=== PATIENT | female | born 1965 | race Caucasian/White ===

== ENCOUNTER 2017-01-01 06:15 | Day surgery (SDC) | payer OTHER ==
[2017-01-01] VITALS (9 sets, daily range): BP systolic 98–135; BP diastolic 71–84; PULSE 82–97; RESP 14–17; O2SAT 93–99
[~2017-01-01] VITALS: Ht 167.6 cm; Wt 89.7 kg
[~2017-01-01 06:15] MED LIST: ALPR0.5T8 PO; CHOL10008 PO; CeFAZolin Inj 2 GM in IV Premix 1 EACH IV ONE; HYDR-3825 PO; HYDR25TA4 PO; LISI10TA PO; Lactated Ringer's 1,000 ML IV SCH; MULT-1018 PO; SERT50TA9 PO; TRAM50TA2 PO
[2017-01-01] MEDS ORDERED: fentaNYL-PF 50 mCg/mL 2 mL Inj ONE (06:16)
[2017-01-01] MEDS ORDERED: Lactated Ringer's 1,000 ML IV ONE (06:31)
--- NOTE | 2017-01-01 07:37 | PCM.HPANE ---
Patient Data Surgeon Admitting Provider: Attending Provider:Moy Ayala MD Primary Care Physician:Sajan Mckeon MD Other Provider:Moy Bay Anesthesia Reason for Visit Right Knee Medial & Lateral Meniscus Tears Ht/WT & BMI Height (Feet): 5 Height (Inches): 6 Weight (Kilograms): 89.72 Body Mass Index 31.00 Allergies Coded Allergies: No Known Allergies (Verified Allergy, Unknown, 09/18/16) Past Anesthesia History Anesthesia History: Denies:: Abnormal Airway, Anesthesia Reactions, Difficult Intubation, Fam Anesthesia Reaction, Fam Malignant Hypertherm, Malignant Hyperthermia Diabetes History Hx Diabetes?: No MRSA MRSA: No Medications Hypertension Medication: Yes Home Meds Incl Beta Sudhakar: No Reported Medications Cholecalciferol (Vitamin D3) (Vitamin D3)1,000 Unit Tab.chew1,000 Unit PO DAILY 12/27/16 Sertraline HCl (Sertraline)50 Mg Umewhk23 Mg PO DAILY 30 Days Ref 0 12/27/16 Multivitamin (Multi Vitamin Daily)1 Each Tablet1 Each PO DAILY 30 Days Ref 0 12/27/16 Lisinopril 10 Mg Jzdtox10 Mg PO DAILY 30 Days Ref 0 12/27/16 Hydrocodone-Acetaminophen 7.5-325 mg 1 Each Tablet0.5-1 Tablet PO Q6H PRN For Pain Ref 0 12/27/16 Hydrochlorothiazide 25 Mg Pcwunv41 Mg PO DAILY 30 Days Ref 0 12/27/16 Alprazolam 0.5 Mg Tablet0.5 Mg PO TID PRN For Anxiety Ref 0 12/27/16 Discontinued Reported Medications Tramadol 50 Mg Cstbsc58 Mg PO Q6H PRN For Pain Ref 0 12/27/16 Cholecalciferol (Vitamin D3) (Vitamin D3)1,000 Unit Tab.chew1,000 Unit PO DAILY 02/05/16 Sertraline HCl (Sertraline)50 Mg Uutkns61 Mg PO DAILY 30 Days Ref 0 02/05/16 Omeprazole 20 Mg Capsule.dr20 Mg PO DAILY Ref 0 02/05/16 Multivitamin (Multi Vitamin Daily)1 Each Tablet1 Each PO DAILY 30 Days Ref 0 02/05/16 Hydrocodone-Acetaminophen 7.5-325 mg 1 Each Tablet1 Tablet PO Q4H PRN For Pain Ref 0 02/05/16 Alprazolam 0.5 Mg Tablet0.5 Mg PO TID PRN For Anxiety Ref 0 02/05/16 Hydrochlorothiazide 25 Mg Jdvwbj29 Mg PO DAILY 30 Days Ref 0 01/06/16 Lisinopril 10 Mg Okoboh35 Mg PO DAILY 30 Days Ref 0 01/06/16 Discontinued Scripts Ketorolac Tromethamine 10 Mg Khojui70 Mg PO QID 5 Days Ref 0 Prov:Martina Mora 05/11/16 History HEENT History: Denies:: Abnormal Airway Cataracts Difficult Intubation Dysphagia Glaucoma Hearing Problem Sinus Problem TMJ Hx of Heart Problems?: Yes Cardiovascular History: Positive for:: Hypertension Denies:: AICD Abdominal Aortic Aneurism Atrial Fibrillation Chest Pain Pacemaker Valvular Heart Disease Hx of Respiratory Problem?: No Respiratory History: Denies:: Asthma COPD Cough Hemoptysis Oxygen Administration Pneumonia Tuberculosis Use of C-PAP Machine Hx Neurologic Problems?: No Neurological History: Denies:: CVA Dementia Headaches Multiple Sclerosis Parkinson's Disease Seizures Hx of GI Problems?: Yes Gastrointestinal History: Denies:: Cirrhosis Diverticulitis Gall Bladder Disease Gastroesphageal Reflux Gastrointestinal Bleeding Heartburn Hepatitis Hiatal Hernia Rectal Bleeding Hx of Problems?: No Genitourinary History: Denies:: Kidney Stones Urinary Tract Infection Female Hx: Denies:: Currently (TUBAL ) Problems with Breasts? Skin History: Denies:: History Skin Disorders? Pressure Ulcers Hx Musculoskeletal Problems?: Yes Musculoskeletal History: Positive for:: Musculoskeletal Trauma (right knee current problem) Osteoarthritis Denies:: Back Injury Degenerative Joint Joint Replacement Systemic Lupus Hx of Psycho/Social Problems?: Yes Psycho Social History: Positive for:: Hx Depression Denies:: Anxiety Hx Surgeries?: Yes (shoulder, tubal ligation, right knee scope) Hx Any Other Health Problems?: Yes Other History: Denies:: Cancer Thyroid Disease History Blood Transfusions: Positive for:: Accept Blood Products? Denies:: Blood Transfusions Hx Diabetes: No Hx Alcohol Use: NoHx Substance Use: No Smoking Status: Never Smoker Have You Smoked inLast 12 mo: No Stop/Bang S-Snoring: Do You Snore Loudly: No T-Tired: feel tired, fatigued: No O-Obsered: Observed not breath: No P-Blood Pressure: treated: Yes B- Body Mass Index > 35 kg/m2: No A- Age over 50: Yes N- Neck Large Circumference: No G- Gender Male: No CHIRAG Total Score: 2 Risk Assessment Category Category 1A: Patient has history of documented sleep apnea, and HAS NOT received any narcotic, sedative or anesthesia administration during this stay. Category 1B: Patient has history of documented sleep apnea, and HAS received any narcotic , sedative or anesthesia administration during this stay Category 2: Patient has SUSPECTED Obstructive Sleep Apnea, and HAS received any narcotic , sedative or anesthesia administration during this stay. Category 3: Patient has SUSPECTED Obstructive Sleep Apnea and HAS NOT received narcotic, sedative or anesthesia administration during this stay. Category 4: Outpatient in Procedural Areas with known sleep apnea or who screen positive for High Risk via the STOP/BANG questionnaire. Exam Exam Vital Signs Vital Signs Date Time Temp Pulse Resp B/P Pulse Ox O2 Delivery O2 Flow Rate FiO2 01/01/17 06:32 36.7 82 14 106/73 93 Room Air General Appearance: Alert, Oriented X3, Cooperative HEENT/AIRWAY: MP 2, Neck Movement (from, thick), Mouth Opening (wnl) Lungs: Clear to Auscultation Heart: Exam Unremarkable Meds/Labs/Diagnostics Admission Meds Current Medications Lactated Ringer's (Lr) 1,000 ml @ ud STK-MED ONCE IV Last administered on t 06:31; Start 01/01/17 at 06:31; Stop 01/01/17 at 06:32; Status DC Plan Impression Patient chart reviewed, patient interviewed and anesthestic plan with risks, benefits, and alternatives discussed, and informed consent obtained. NPO Status: 04/30@2029 ASA Physical Status: ASA2 Mod Systemic Disease Anesthetic Plan: GA Bene/Risks/Altern/Consents: Yes HP Complete Prior to Induction: Yes Other patient had LMA for Knee scope 8 months ago and had 3 week sore throat post op. Requests that this not happen again. Lew Lee MD Jan 01, 2017 07:37
[2017-01-01] MEDS ORDERED: Acetaminophen IV 1,000 MG in IV Premix 1 EACH IV ONE (07:40)
[2017-01-01] MEDS ORDERED: Lactated Ringer's 1,000 ML IV SCH (08:43)
[2017-01-01] MEDS ORDERED: Lactated Ringer's 500 ML IV PRN (08:43)
[2017-01-01] MEDS ORDERED: hydrALAZINE 20 mg/mL Inj IVPUSH PRN (08:45)
[2017-01-01] MEDS ORDERED: Atropine 0.4 mg/mL Inj IVPUSH PRN (08:45)
[2017-01-01] MEDS ORDERED: hydrOXYzine Inj 25 MG/1 mL SDV IM PRN (08:45)
[2017-01-01] MEDS ORDERED: EPHEDrine Sulfate 50 mg/mL Inj IVPUSH PRN (08:45)
[2017-01-01] MEDS ORDERED: Phenylephrine 10,000 mCg/mL Inj IVPUSH PRN (08:45)
[2017-01-01] MEDS ORDERED: Dexamethasone 4 mg/mL Inj IVPUSH PRN (08:45)
[2017-01-01] MEDS ORDERED: HYDROmorphone 1 mg/mL Inj IVPUSH PRN (08:45)
[2017-01-01] MEDS ORDERED: Labetalol 5 mg/mL 4 mL Inj IV PRN (08:45)
[2017-01-01] MEDS ORDERED: Ondansetron 2 mg/mL 2 mL Inj IVPUSH PRN (08:45)
[2017-01-01] MEDS ORDERED: MethylprednisoLONE Depot 40 mg/mL Inj ARTICULAR ONE (08:56)
[2017-01-01] MEDS ORDERED: Lidocaine 2%-Epi 1:100,000 20 mL Inj INFILTRATE ONE (08:56)
[2017-01-01] MEDS ORDERED: HYDROcodone-APAP 5-325 mg Tablet PO PRN (09:50)
--- NOTE | 2017-01-01 09:51 | PCM.ANEP1 ---
Post Anesthesia Phase 1 PACU Phase 1 Assessment Vital Signs Vital Signs Date Time Temp Pulse Resp B/P Pulse Ox O2 Delivery O2 Flow Rate FiO2 01/01/17 09:50 91 15 116/83 96 01/01/17 09:45 94 15 98/72 97 Room Air 01/01/17 09:40 37.1 92 15 118/73 97 Room Air 01/01/17 06:32 36.7 82 14 106/73 93 Room Air Anesthetic Administered: GA Level of Alertness: Awake, talking WHITTAKER's with Equal Strength: Yes Pain: No Nausea or Vomiting: No Oxygen Delivery: Room Air Lungs: Normal Air Movement Summary Denies Sore Throat Lew Lee MD Jan 01, 2017 09:51
--- NOTE | 2017-01-01 09:53 | PCM.ORTHOB ---
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 Grade 2-3 chondromalacia on both sides of the joint with areas in the weightbearing surface of the medial femoral condyle loss of cartilage down to near bone. The Anterior cruciate ligament was intact and stable to probing. Radial tearing of the free edge of the lateral meniscal body extending into the anterior horn. Areas on the lateral periphery of the weightbearing surface lateral femoral condyle with loss of cartilage down to bone with surrounding grade 3 chondromalacia. The majority of the tibial and lateral femoral condylar weightbearing surface had grade 1-2 chondromalacia. No loose bodies were noted in the medial or lateral gutters. The patellar undersurface was remarkable for diffuse grade 2-3 chondromalacia. Grafts, Implants: None Complications There were no periprocedural complications identified. Condition Stable Anesthetic Administered: GA Drains: None Catheters: None Output, Estimated Blood Loss: 2 Blood Admin during surgery: No Surgical Cast or Splint: None Additional Information Tourniquet time 36 minutes Surgical Specimen Removed: No Surgical Specimen sent to Path: No Post Operative Plan Patient will be discharged from daycare surgery when protocol is met. The patient may weight-bear as tolerated through her right lower extremity beginning postop day #1. Patient will resume her preoperative knee strengthening exercises immediately. Patient will be seen for routine check on her after postop day #5. The patient will be able to have her skin sutures removed on or after postoperative day #12. The patient should be able to resume light activities of daily living by that point. Moy Ayala MD Jan 01, 2017 09:53
--- NOTE | 2017-01-01 10:00 | PCM.ORTHOP ---
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 Unfortunately the patient redeveloped right knee painful symptomatology after performing some strenuous yard cleanup activities and continues to have sharp catching pain on the inside and outside of her right knee with loaded squatting, lunging, flexing, turning and twisting activities. Preoperative exam of right knee reveals full and stable knee range of motion with tenderness to palpation of the joint line and positive Juan R signs. Preoperative MRI of the patient's right knee is suspicious for re-tear of the medial meniscal remnant and possible tears of the lateral menisci. Progressive medial patellofemoral compartment articular loss is also noted. The patient has not gotten relief from her more recent knee symptoms through activity modification, use of anti-inflammatory agents and an appropriate attempt at knee rehabilitation. The patient presents for right knee arthroscopic partial medial lateral meniscectomies. Findings Right knee medial compartment degenerative tear of medial meniscus at the junction of the body and posterior horn with partial extrusion of torn fragment medially. Grade 2-3 chondromalacia on both sides of the joint with areas in the weightbearing surface of the medial femoral condyle loss of cartilage down to near bone. The Anterior cruciate ligament was intact and stable to probing. Radial tearing of the free edge of the lateral meniscal body extending into the anterior horn. Areas on the lateral periphery of the weightbearing surface lateral femoral condyle with loss of cartilage down to bone with surrounding grade 3 chondromalacia. The majority of the tibial and lateral femoral condylar weightbearing surface had grade 1-2 chondromalacia. No loose bodies were noted in the medial or lateral gutters. The patellar undersurface was remarkable for diffuse grade 2-3 chondromalacia. Details of Procedure The patient was brought to the OR and given a general anesthetic. She is placed in a supine position and tourniquet was placed high about the right thigh. Her extremities prepped and draped in usual sterile fashion. Tourniquet was inflated to 275 mmHg. We reutilized the 2 infrapatellar arthroscopic portal scars, one medial and one lateral. We inserted the arthroscope and instilled lactated Ringer's with epinephrine as we went directly to the medial compartment. We confirmed the presence of a partially incarcerated and extruded degenerative tear of the medial meniscus at the junction of the body and posterior horn. There was minor fraying of the meniscal root as well. We confirmed further loss of cartilage on both sides of the joint down to near bone or bone on medial femoral condylar weightbearing surface. We used the arthroscopic basket biting forceps and arthroscopic shaver to debride the meniscal tear back to a stable base. We used the arthroscopic shaver to perform a limited chondroplasty of the more loose cartilaginous fragments in the medial femoral condyle. We explored the rest of the knee. We found the anterior cruciate ligament to be intact and stable to probing. Lateral compartment was better preserved with peripheral loss of cartilage in the weightbearing surface of the lateral femoral condyle down to bone or near bone. The lateral meniscal body appeared to have degenerative tears extending into the anterior horn. We used the arthroscopic shaver to debride the lateral meniscal tears back to a stable base. Obesity arthroscopic shaver to debride the loose cartilaginous fragments lateral femoral condyle. The medial and lateral gutters were free of loose bodies. We explored the patellofemoral compartment and found diffuse grade 2-3 chondromalacia affecting the majority of the patellar undersurface. We used the arthroscopic shaver to perform a limited chondroplasty of the more loose cartilaginous fragments. The knee was then thoroughly irrigated and the arthroscope and instruments removed. 40 mg of Depo-Medrol and 30 mL of 2% lidocaine with epinephrine was instilled into the knee. The arthroscopic portal sites were closed with interrupted 4-0 nylon sutures. The wounds were dressed with Xeroform and dry gauze dressings. The tourniquet was deflated and the patient was taken back to PACU in stable and satisfactory condition. There were no complications. The patient tolerated the procedure well. Grafts, Implants: None Complications There were no periprocedural complications identified. Condition Stable Anesthetic Administered: GA Drains: None Catheters: None Output, Estimated Blood Loss: 2 Blood Admin during surgery: No Surgical Cast or Splint: None Addtional Information Tourniquet time 36 minutes Surgical Specimen Removed: No Specimen sent to Pathology: No Post Operative Plan Patient will be discharged from daycare surgery when protocol is met. The patient may weight-bear as tolerated through her right lower extremity beginning postop day #1. Patient will resume her preoperative knee strengthening exercises immediately. Patient will be seen for routine check on her after postop day #5. The patient will be able to have her skin sutures removed on or after postoperative day #12. The patient should be able to resume light activities of daily living by that point. copies to: Sajan Mckeon MD; Moy Ayala MD, Michael G.E MD Jan 01, 2017 10:00
[2017-01-01] MEDS: fentaNYL-PF 50 mCg/mL 2 mL Inj IVPUSH PRN ×2 (10:05→10:10)
--- NOTE | 2017-01-01 11:21 | PCM.ANEP2 ---
Post Anesthesia Evaluation ASA/CMS Post Anesthesia VS in Patient's Normal Range?: Yes Resp Stable; Airway Patent?: Yes CV Function & Hydration Stable: Yes Mental Status Recovered?: Yes Pain control Satisfactory?: Yes N/V Control Satisfactory?: Yes Lew Lee MD Jan 01, 2017 11:21
[2017-04-23] MEDS ORDERED: PANT40TA3 PO (10:23)
== END 2017-01-01 23:59 | disposition home or self-care (01) ==
LOC: SAS 06:15
PROVIDERS: ATTEND Orthopaedic Surgery
DX: M23.341 Other meniscus derangements, anterior horn of lateral meniscus, right knee (principal); M23.321 Other meniscus derangements, posterior horn of medial meniscus, right knee; M94.261 Chondromalacia, right knee; I10 Essential (primary) hypertension
CPT/HCPCS: 29880; J0690; J1030; J1170; J2175; J2250; J3010; J7120

== ENCOUNTER 2017-04-24 07:08 | Day surgery (SDC) | payer OTHER ==
[~2017-04-24] VITALS: Ht 167.6 cm; Wt 86.2 kg
[~2017-04-24 07:08] MED LIST changes: -CeFAZolin Inj 2 GM in IV Premix 1 EACH IV ONE; +Lactated Ringer's 1,000 ML IV ONE; -Lactated Ringer's 1,000 ML IV SCH; +PANT40TA3 PO; -TRAM50TA2 PO
[2017-04-24] MEDS ORDERED: Propofol 10,000 mCg/mL 20 mL Inj ONE (07:09)
[2017-04-24 07:36] VITALS: BP 134/91; RESP 14; O2SAT 97
[2017-04-24] MEDS ORDERED: Lactated Ringer's 1,000 ML IV SCH (07:48)
--- NOTE | 2017-04-24 07:48 | PCM.HPANE ---
Patient Data Surgeon Admitting Provider: Attending Provider:Praneeth Mcqueen MD Primary Care Physician:Sajan Mckeon MD Other Provider:Edyta Bayingham Anesthesia Reason for Visit GERD Ht/WT & BMI Height (Feet): 5 Height (Inches): 6 Weight (Kilograms): 86.18 Body Mass Index 30.00 Allergies Coded Allergies: No Known Allergies (Verified Allergy, Unknown, 04/23/17) Past Anesthesia History Anesthesia History: Denies:: Abnormal Airway, Anesthesia Reactions, Difficult Intubation, Fam Anesthesia Reaction, Fam Malignant Hypertherm, Malignant Hyperthermia Diabetes History Hx Diabetes?: No MRSA MRSA: No Medications Hypertension Medication: Yes Home Meds Incl Beta Sudhakar: No Reported Medications Pantoprazole DR 40 Mg Tablet.dr40 Mg PO DAILY Ref 0 04/23/17 Cholecalciferol (Vitamin D3) (Vitamin D3)1,000 Unit Tab.chew1,000 Unit PO DAILY 12/27/16 Sertraline HCl (Sertraline)50 Mg Atsgof86 Mg PO DAILY 30 Days Ref 0 12/27/16 Multivitamin (Multi Vitamin Daily)1 Each Tablet1 Each PO DAILY 30 Days Ref 0 12/27/16 Lisinopril 10 Mg Avhdos99 Mg PO DAILY 30 Days Ref 0 12/27/16 Hydrocodone-Acetaminophen 7.5-325 mg 1 Each Tablet0.5-1 Tablet PO Q6H PRN For Pain Ref 0 12/27/16 Hydrochlorothiazide 25 Mg Atopfe26 Mg PO DAILY 30 Days Ref 0 12/27/16 Alprazolam 0.5 Mg Tablet0.5 Mg PO TID PRN For Anxiety Ref 0 12/27/16 History History of ENT Problems?: No HEENT History: Denies:: Abnormal Airway Cataracts Difficult Intubation Dysphagia Hearing Problem Sinus Problem TMJ Denture Type: None Teeth Condition: Within Normal Limits Hx of Heart Problems?: Yes Cardiovascular History: Positive for:: Hypertension (lisinopril) Denies:: AICD Abdominal Aortic Aneurism Atrial Fibrillation Chest Pain Pacemaker Valvular Heart Disease Hx of Respiratory Problem?: No Respiratory History: Denies:: Asthma COPD Cough Hemoptysis Oxygen Administration Pneumonia Tuberculosis Use of C-PAP Machine Hx Neurologic Problems?: No Neurological History: Denies:: CVA Dementia Headaches Multiple Sclerosis Parkinson's Disease Seizures Hx of GI Problems?: Yes Hx of Problems?: No Genitourinary History: Denies:: Kidney Stones Urinary Tract Infection Female Hx: Denies:: Currently (TUBAL ) Problems with Breasts? Skin History: Denies:: History Skin Disorders? Pressure Ulcers Hx Musculoskeletal Problems?: Yes Musculoskeletal History: Positive for:: Musculoskeletal Trauma (right knee current problem) Denies:: Back Injury Degenerative Joint Joint Replacement Systemic Lupus Hx of Psycho/Social Problems?: Yes Psycho Social History: Positive for:: Hx Depression Denies:: Anxiety Hx Surgeries?: Yes (shoulder, tubal ligation, right knee scope) Hx Any Other Health Problems?: Yes Other History: Denies:: Cancer Thyroid Disease History Blood Transfusions: Denies:: Blood Transfusions Hx Diabetes: No Hx Alcohol Use: NoHx Substance Use: No Smoking Status: Never Smoker Have You Smoked inLast 12 mo: No Stop/Bang Treated for Sleep Apnea?: No Do You Have a CPAP Machine?: No S-Snoring: Do You Snore Loudly: No T-Tired: feel tired, fatigued: No P-Blood Pressure: treated: Yes B- Body Mass Index > 35 kg/m2: Yes A- Age over 50: Yes N- Neck Large Circumference: No G- Gender Male: No CHIRAG Risk Assessment: Low Risk, <3 Yes Risk Assessment Category Category 1A: Patient has history of documented sleep apnea, and HAS NOT received any narcotic, sedative or anesthesia administration during this stay. Category 1B: Patient has history of documented sleep apnea, and HAS received any narcotic , sedative or anesthesia administration during this stay Category 2: Patient has SUSPECTED Obstructive Sleep Apnea, and HAS received any narcotic , sedative or anesthesia administration during this stay. Category 3: Patient has SUSPECTED Obstructive Sleep Apnea and HAS NOT received narcotic, sedative or anesthesia administration during this stay. Category 4: Outpatient in Procedural Areas with known sleep apnea or who screen positive for High Risk via the STOP/BANG questionnaire. Exam Exam Vital Signs Vital Signs Date Time Temp Pulse Resp B/P Pulse Ox O2 Delivery O2 Flow Rate FiO2 04/24/17 07:36 36.5 14 134/91 97 Room Air General Appearance: Oriented X3 HEENT/AIRWAY: MP 2 Lungs: Normal Air Movement Heart: Regular Rate/Rhythm Plan Impression Patient chart reviewed, patient interviewed and anesthestic plan with risks, benefits, and alternatives discussed, and informed consent obtained. ASA Physical Status: ASA2 Mod Systemic Disease Anesthetic Plan: MAC Bene/Risks/Altern/Consents: Yes HP Complete Prior to Induction: Yes Omer Villarreal MD Apr 24, 2017 07:48
[2017-04-24] MEDS ORDERED: Ondansetron 2 mg/mL 2 mL Inj IVPUSH PRN (07:50)
[2017-04-24] MEDS ORDERED: MetoCLOpramide 5 mg/mL 2 mL Inj IVPUSH PRN (07:50)
[2017-04-24 08:14] VITALS: BP 139/91; PULSE 76; RESP 16; O2SAT 97
--- NOTE | 2017-04-24 08:17 | PCM.ENDEGD ---
EGD Date of Service: Apr 24, 2017 Physician Praneeth Mcqueen MD Pre Procedure Diagnosis: Reflux Post Procedure Dx & Findings: Esophagitis hiatal hernia esophageal ulcer and possible Jackson's Procedure Esophagogastroduodenoscopy PROCEDURE IN DETAIL: After proper sedation, Olympus video endoscope was inserted into patient's mouth and esophagus was successfully intubated. Scope introduced esophagus. Esophagus showed normal shiny whitish mucosa consistent with squamous cell component. Z line was not intact at 36 cm from the incisors. Patient had a 4 cm hiatal hernia as well. At 36 cm, there were evidence of healing ulcer 2. These are biopsied. Also some scar tissue is noted. This was also biopsied. Narrow banding used and there was a possible short segment Jackson's ie less than 2 cm of salmon color mucosa breaking through the Z line. Four-quadrant biopsies obtained. However the lumen was wide open. All the biopsies are placed in 1 bottle. Scope further advanced to the stomach. Stomach showed normal shiny mucosa with normal appearing rugae folds without any ulcer mass erosion. Cardia fundus body antrum pylorus were all visualized. Retroflexion was done. Stomach was easily inflated and deflatable using air. Scope further events to the distal duodenum. Duodenum revealed normal villous structures with normal appearing folds without any mass ulcer erosion. Impression Esophagitis hiatal hernia esophageal ulcer possible Jackson's Recommendation Continue pantoprazole as prescribed Follow-up with Kassy Robledo in the GI clinic Presedation Assessment Risks and Benefits Informed consent was obtained from the patient after all risks and benefits including but not limited to drug reaction, infection, pain, bleeding, perforation, as well as alternatives were discussed. Patient monitoring Continuous pulse oximetry, cardiac monitoring, blood pressure monitoring, IV access, and oxygen at 2L per nasal cannula. Complications There were no periprocedural complications identified. Post Procedure Plan Post Procedure Recommendations 1. Restrict activities today. 2. Resume normal activities in the morning. 3. Resume medications. 4. GERD behavioral modification: - Avoid fatty, acidic, spicy, large meals - Do not lie down after meals - Do not eat or drink anything for at least 2 1/2 hours before going to bed at night - Discontinue tobacco and alcohol - Decrease or avoid caffeine - Avoid chocolate and mints - Decrease weight - Avoid aspirin and non steroidal anti-inflammatory agents (NSAID) such as Aleve, Advil, Mobic, Naproxen, Ibuprofen, etc 5. Add proton pump inhibitor. Take 30 minutes before 1st meal of the day. 6. Patient informed of normal post procedure side effects as bloating, drowsiness, blood streaking in the stool 7. If gastric biopsy reveal H.pylori, continue with appropriate treatment 8. If small bowel biopsy reveals celiac, continue with appropriate treatment 9. Please don't hesitate to call me with any questions Praneeth Mcqueen MD Apr 24, 2017 08:17
[2017-04-24 08:24] VITALS: BP 147/94; PULSE 70; RESP 16; O2SAT 100
[2017-04-24 08:33] VITALS: BP 142/94; PULSE 63; RESP 16; O2SAT 100
--- NOTE | 2017-04-24 10:04 | PCM.ANEP1 ---
Post Anesthesia PACU Phase 1 Assessment Vital Signs Vital Signs Date Time Temp Pulse Resp B/P Pulse Ox O2 Delivery O2 Flow Rate FiO2 04/24/17 08:33 63 16 142/94 100 Room Air 04/24/17 08:24 70 16 147/94 100 Room Air 04/24/17 08:14 36.6 76 16 139/91 97 Room Air 04/24/17 07:36 36.5 14 134/91 97 Room Air Anesthetic Administered: MAC Level of Alertness: Awake, talking Pain: No Nausea or Vomiting: No CV Function & Hydration Stable: Yes Airway Device: Lungs: Normal Air Movement PACU Phase 2 Assessment Patient Instructions Provided: N/A Omer Villarreal MD Apr 24, 2017 10:04
--- NOTE | 2017-04-25 14:09 | PATH ---
SURGICAL PATHOLOGY Attending Physician:Praneeth Mcqueen M.D. CASE STATUS: Signed Out PATIENT NAME: ANTWON CUEVA PID: [id number] : 1965 DATE COLLECTED:04/24/2017 16:17 SPECIMEN: Esophagus, Biopsy CLINICAL HISTORY: 1. DISTAL ESOPHAGUS BX FINAL DIAGNOSIS: 1.DISTAL ESOPHAGUS BIOPSY: FRAGMENTS OF SQUAMOUS MUCOSA AND GASTRIC CARDIA-TYPE MUCOSA POSITIVE FOR SPECIALIZED METAPLASIA OF OVERTON' S-TYPE ESOPHAGUS. CHRONIC INFLAMMATION WITH REACTIVE EPITHELIAL CHANGES, BUT NEGATIVE FOR DYSPLASIA AND MALIGNANCY. Negative for squamous intraepithelial eosinophils. ICD10 K22.7 GROSS DESCRIPTION: The specimen is received in one formalin filled container labeled with the patient's name, sublabeled "distal esophagus" and consists of 5 portions of tissue which aggregate to 0.3 x 0.3 x 0.2 CM. The specimen is entirely submitted in one cassette. 04/24/2017 DAC MICRO DESCRIPTION: See diagnosis. ICD-9 CODES: CPT CODES: 1: 18907 Electronically Signed Out Ric Damon MD [facility] Pathology [facility] [address], [place] [address] Technical component performed at [facility], [address] [place] [address] Ave, [address], [place], [address]
== END 2017-04-24 23:59 | disposition home or self-care (01) ==
LOC: END 07:08
PROVIDERS: ATTEND Internal Medicine
DX: K22.70 Barrett's esophagus without dysplasia (principal); K44.9 Diaphragmatic hernia without obstruction or gangrene; K21.0 Gastro-esophageal reflux disease with esophagitis; R13.14 Dysphagia, pharyngoesophageal phase; I10 Essential (primary) hypertension; F41.9 Anxiety disorder, unspecified; M54.9 Dorsalgia, unspecified; Z79.891 Long term (current) use of opiate analgesic
CPT/HCPCS: 43239; 88305; J7120